=== PATIENT | male | born 1975 | race Caucasian/White ===

== ENCOUNTER 2017-03-30 12:18 | Observation (INO) | payer OTHER ==
[~2017-03-30] VITALS: Ht 167.6 cm; Wt 93.2 kg
[2017-03-30 12:20] VITALS: BP 207/105; PULSE 95; RESP 14; TEMP 98.2; O2SAT 98
[2017-03-30 13:14] LABS: AUTOMATED NEUTROPHIL # 6.2 TH/MM3 (1.8-7.7); BASOPHIL % 0.5 % (0.0-2.0); EOSINOPHIL # 0.3 TH/MM3 (0-0.4); EOSINOPHIL % 3.6 % (0.0-4.0); HEMATOCRIT 46.8 % (39.0-51.0); HEMOGLOBIN 16.2 GM/DL (13.0-17.0); LYMPH % 17.1 % (9.0-44.0); LYMPHOCYTE # 1.5 TH/MM3 (1.0-4.8); MEAN CELL VOLUME 92.4 FL (80.0-100.0); MEAN CORPUSCULAR HGB CONC 34.6 % (32.0-36.0); MONO % 8.7 % (0.0-8.0); MONOCYTE # 0.8 TH/MM3 (0-0.9); NEUT % 70.1 % (16.0-70.0); PLATELET COUNT 206 TH/MM3 (150-450); RED BLOOD COUNT 5.06 MIL/MM3 (4.50-5.90); RED CELL DISTRIBUTION WIDTH 13.5 % (11.6-17.2); WHITE BLOOD COUNT 8.8 TH/MM3 (4.0-11.0)
[2017-03-30 13:28] LABS: INTERNATIONAL NORMALIZED RATIO 1.1 RATIO
[2017-03-30 13:33] LABS: BICARBONATE 27.2 MEQ/L (21.0-32.0); BLOOD UREA NITROGEN 14 MG/DL (7-18); CALCIUM 8.3 MG/DL (8.5-10.1); CHLORIDE 106 MEQ/L (98-107); CREATININE 0.96 MG/DL (0.60-1.30); GLOMERULAR FILTRATION RATE 86 ML/MIN (>89); GLUCOSE,RANDOM 99 MG/DL (74-106); MAGNESIUM 1.9 MG/DL (1.5-2.5); PROTHROMBIN TIME - PATIENT 10.8 SEC (9.8-11.6); SODIUM (NA) 139 MEQ/L (136-145)
--- NOTE | 2017-03-30 13:33 | RADRPT ---
EXAM DATE/TIME: 03/30/2017 13:20 [place] COMPARISON: No previous studies available for comparison. INDICATIONS : Chest tightness, cough. MEDICAL HISTORY : None. SURGICAL HISTORY : None. ENCOUNTER: Initial ACUITY: 2 weeks PAIN SCORE: 2/10 LOCATION: Bilateral chest FINDINGS: PA and lateral views of the chest demonstrate the lungs to be symmetrically aerated without evidence of mass, infiltrate or effusion. The cardiomediastinal contours are unremarkable. Osseous structure s are intact. CONCLUSION: No acute cardiopulmonary process. Lungs are clear. Ash Thomas MD on March 30, 2017 at 13:30 Board Certified Radiologist. This report was verified electronically.
[2017-03-30 13:36] LABS: TROPONIN I LESS THAN 0.02 NG/ML (0.02-0.05)
[2017-03-30 13:59] VITALS: BP 214/96; PULSE 82; RESP 18; O2SAT 99
[2017-03-30] MEDS ORDERED: NITROGLYCERIN 2% OINT 1 GM PACKET TOP ONE (14:00)
[2017-03-30] MEDS ORDERED: hydrALAZINE HCL 20 MG/ML VIAL IV PUSH ONE (14:00)
[2017-03-30] MEDS ORDERED: SODIUM CHLORIDE 0.9% FLUSH 10 ML FLUSH IVF PRN (14:00)
--- NOTE | 2017-03-30 14:06 | PD ---
HPI Chief Complaint: Chest Pain Time Seen by Provider: 13:51 Travel History International Travel<30 days: No Contact w/Intl Traveler<30days: No Traveled to known affect area: No History of Present Illness HPI Patient comes to the emergency department complaining of chest pain began earlier today. Please states he felt short of breath over the past couple days then today he felt a tightness throughout his chest radiating into his back and tingling in his left upper extremity. Patient reports he is supposed be on blood pressure medicine but has been off of it for 2 months. Patient reports he last had a stress test 5 years ago and last saw a lead net software developer 5 years ago as well. Denies any headache, diaphoresis, nausea, vomiting, fevers, or abdominal pain. Denies anything making symptoms better or worse, but does feel better currently. Patient states he took 2 full-strength aspirin prior to coming to the emergency department. PFSH Past Medical History Cardiovascular Problems: Yes (HTN, cholesterol) High Cholesterol: Yes Hypertension: Yes Tetanus Vaccination: < 5 Years Influenza Vaccination: No Past Surgical History Surgical History: No Previous Surgery Social History Alcohol Use: Yes (DAILY) Tobacco Use: Yes Substance Use: No Allergies-Medications (Allergen,Severity, Reaction): Coded Allergies: No Known Allergies (Unverified , 03/30/17) Reported Meds & Prescriptions Reported Meds & Active Scripts Active No Active Prescriptions or Reported Medications Review of Systems Except as stated in HPI: all other systems reviewed are Neg Physical Exam Narrative GENERAL: Well-developed, well nourished, in no acute distress, and non-ill appearing. SKIN: Focused skin assessment warm and dry. HEAD: Atraumatic. Normocephalic. EYES: Pupils equal and round. EOMI. No scleral icterus. No injection or drainage. ENT: No nasal bleeding or discharge. Mucous membranes pink and moist. NECK: Trachea midline. No JVD. Supple. No nuclear rigidity. CARDIOVASCULAR: Regular rate and rhythm. No murmur appreciated. RESPIRATORY: No accessory muscle use. No respiratory distress. Clear to auscultation. Breath sounds equal bilaterally. MUSCULOSKELETAL: No obvious deformities. No clubbing. No cyanosis. No edema. Full range of motion. NEUROLOGICAL: Awake and alert. No obvious cranial nerve deficits. Motor grossly within normal limits. Normal speech. PSYCHIATRIC: Appropriate mood and affect; insight and judgment normal. Data Data Last Documented VS Vital Signs Date Time Temp Pulse Resp B/P (MAP) Pulse Ox O2 Delivery O2 Flow Rate FiO2 03/30/17 14:10 96 Room Air 03/30/17 14:10 77 19 184/103 (130) 214/96 (135) 03/30/17 12:20 98.2 Orders Orders Electrocardiogram (03/30/17 12:40) Basic Metabolic Panel (Bmp) (03/30/17 12:40) Ckmb (Isoenzyme) Profile (03/30/17 12:40) Complete Blood Count With Diff (03/30/17 12:40) Magnesium (Mg) (03/30/17 12:40) Prothrombin Time / Inr (Pt) (03/30/17 12:40) Act Partial Throm Time (Ptt) (03/30/17 12:40) Troponin I (03/30/17 12:40) Chest, Pa & Lat (03/30/17 12:40) CKMB (03/30/17 12:55) CKMB% (03/30/17 12:55) Ecg Monitoring (03/30/17 14:00) Bilateral Bp Monitoring (03/30/17 14:00) Iv Access Insert/Monitor (03/30/17 14:00) Oximetry (03/30/17 14:00) Oxygen Administration (03/30/17 14:00) Nitroglycerin 2% Oint (Nitroglycerin 2% (03/30/17 14:00) Sodium Chloride 0.9% Flush (Ns Flush) (03/30/17 14:00) Hydralazine Inj (Apresoline Inj) (03/30/17 14:00) Admit Order (Ed Use Only) (03/30/17 14:45) Labs Laboratory Tests Test 03/30/17 12:55 White Blood Count 8.8 TH/MM3 Red Blood Count 5.06 MIL/MM3 Hemoglobin 16.2 GM/DL Hematocrit 46.8 % Mean Corpuscular Volume 92.4 FL Mean Corpuscular Hemoglobin 32.0 PG Mean Corpuscular Hemoglobin Concent 34.6 % Red Cell Distribution Width 13.5 % Platelet Count 206 TH/MM3 Mean Platelet Volume 9.0 FL Neutrophils (%) (Auto) 70.1 % Lymphocytes (%) (Auto) 17.1 % Monocytes (%) (Auto) 8.7 % Eosinophils (%) (Auto) 3.6 % Basophils (%) (Auto) 0.5 % Neutrophils # (Auto) 6.2 TH/MM3 Lymphocytes # (Auto) 1.5 TH/MM3 Monocytes # (Auto) 0.8 TH/MM3 Eosinophils # (Auto) 0.3 TH/MM3 Basophils # (Auto) 0.0 TH/MM3 CBC Comment DIFF FINAL Differential Comment Prothrombin Time 10.8 SEC Prothromb Time International Ratio 1.1 RATIO Activated Partial Thromboplast Time 28.5 SEC Blood Urea Nitrogen 14 MG/DL Creatinine 0.96 MG/DL Random Glucose 99 MG/DL Calcium Level 8.3 MG/DL Magnesium Level 1.9 MG/DL Sodium Level 139 MEQ/L Potassium Level 4.0 MEQ/L Chloride Level 106 MEQ/L Carbon Dioxide Level 27.2 MEQ/L Anion Gap 6 MEQ/L Estimat Glomerular Filtration Rate 86 ML/MIN Total Creatine Kinase 118 U/L Creatine Kinase MB 0.7 NG/ML Troponin I LESS THAN 0.02 NG/ML MDM Medical Decision Making Medical Screen Exam Complete: Yes Emergency Medical Condition: Yes Interpretation(s) EKG reviewed by Dr. Pierre shows sinus rhythm ventricular rate of 68. No STEMI. Last Impressions Chest X-Ray 03/30/17 1240 Signed Impressions: Service Date/Time: March 13:20 - CONCLUSION: No acute cardiopulmonary process. Lungs are clear. Ash Thomas MD Differential Diagnosis Acute coronary syndrome, atypical chest pain, uncontrolled hypertension, hypertension urgency, medical noncompliance, metabolic disturbance, pneumonia, pneumothorax Narrative Course Patient was seen and examined. IV was established and patient was placed on cardiac monitoring. Patient was given Nitropaste and IV hydralazine, which improved patient's blood pressure. Labs had been ordered in triage were reviewed along with chest x-ray and EKG. Discussed all findings and plan of care with patient, who is agreeable for admission. All questions were answered. Discussed patient with Dr. Pierre, who is in agreement with plan of care and disposition. Patient remained stable throughout ED course. Diagnosis Primary Impression: Chest pain Qualified Codes: R07.9 - Chest pain, unspecified Admitting Information Admitting Physician Requests: Observation Scripts No Active Prescriptions or Reported Meds Condition: Stable Gianni Bansal Mar 30, 2017 14:06
[2017-03-30 14:10] VITALS: BP_SYST 184; BP_SYST 214; BP_DIAS 103; BP_DIAS 96; PULSE 73; PULSE 77; RESP 19; O2SAT 96; O2SAT 98
[2017-03-30 14:48] VITALS: BP 151/82; PULSE 74; RESP 16; O2SAT 98
[2017-03-30] MEDS ORDERED: ACETAMINOPHEN 500 MG CPLT PO PRN (15:15)
[2017-03-30] MEDS ORDERED: NITROGLYCERIN 0.4 MG SL 25 TABS/BTL SL PRN (15:15)
[2017-03-30] MEDS ORDERED: ONDANSETRON HCL 4 MG/2 ML VIAL IV PUSH PRN (15:15)
[2017-03-30 15:50] VITALS: BP 161/92
[2017-03-30] MEDS ORDERED: amLODIPine BESYLATE 5 MG TAB PO ONE (16:00)
[2017-03-30] MEDS ORDERED: cloNIDine HCL 0.1 MG TAB PO PRN (16:00)
--- NOTE | 2017-03-30 16:03 | HHI.HP ---
HPI Primary Care Physician No Primary Care Physician Chief Complaint Chest tightness History of Present Illness 41-year-old male with history of hypertension and hyperlipidemia presents to emergency room for further evaluation of chest tightness. Endorses been out of his cholesterol and blood pressure medication for a couple months. Onset 9 AM. Location substernal. Characterized as tightness. Severity moderate. Radiation left shoulder blade describes as "soreness" lasting few minutes with accompanying left fingertips numbness/tingling. No associated symptoms of nausea , vomiting, dyspnea, or diaphoreses. No known precipitating or relieving factors. Endorses last 2-3 weeks difficult to take a deep breath with intermittent nonproductive cough. No fever or chills. Current chest pain free. Endorses similar chest discomfort in the past, having cardiac work up three times, all reported to be normal. Review of Systems General: No fatigue,weakness, fever, chills, recent illness, or change in appetite HEENT: No CUTLER, no vision changes, no nasal congestion, no dysphasia, intermittent postnasal drip 2 weeks CV: As stated above. No current chest tightness. No palpitations, intermittent leg pain, or dizziness RESP: No SOB, cough, wheeze, or upper respiratory infection GI: No nausea, vomiting, bowel changes, diarrhea, constipation, pain, distention , melena, or blood in the stool. No change in appetite, no unintentional weight gain or weight loss. : No dysuria, urgency, frequency EXT: No lower leg edema, no paraesthesias MS: No discomfort,injury, recent trauma, or change in ROM NEURO: No difficulty with balance, LOC, or motor/sensory deficits PSYCH: No anxiety, depression, suicidal ideation. Past panic attacks, however does not feel to be under much stress lately. SKIN: No rashes, no concerning lesions Past Family Social History Allergies: Coded Allergies: No Known Allergies (Unverified , 03/30/17) Past Medical History Hypertension, hyperlipidemia Past Surgical History None Reported Medications Reported Meds & Active Scripts Active No Active Prescriptions or Reported Medications Was taking lipitor 80mg daily and lisinopril 10mg daily, has ran out of medications x2 months Active Ordered Medications Current Medications Medications (Trade) Dose Ordered Sig/Jaimie Route Start Time Stop Time Status Last Admin (NS Flush) 2 ml UNSCH PRN IVF 03/30/17 14:00 (NS Flush) 2 ml BID IV FLUSH 03/30/17 21:00 (Tylenol) 500 mg Q4H PRN PO 03/30/17 15:15 (Zofran Inj) 4 mg Q6H PRN IV PUSH 03/30/17 15:15 (Nitrostat Sl) 0.4 mg Q5M PRN SL 03/30/17 15:15 (Aspirin) 325 mg DAILY PO 03/31/17 09:00 UNV Family History Noncontributory for early onset cardiovascular disease. Social History Known hypertension and hyperlipidemia (out of medications x2 months). No known diabetes or CAD. Current 1 pack/day smoker x 20 years. Endorses 6-7 beers nightly. Denies any illegal drug use. Endorses sedentary lifestyle. Past cardiac testing No recent stress testing, last exercise testing approx. 5-6 years. Physical Exam Vital Signs Vital Signs Date Time Temp Pulse Resp B/P (MAP) Pulse Ox O2 Delivery O2 Flow Rate FiO2 03/30/17 15:50 76 16 161/92 (115) 99 03/30/17 14:48 74 16 151/82 (105) 98 Room Air 03/30/17 14:10 96 Room Air 03/30/17 14:10 77 19 184/103 (130) 96 Room Air 214/96 (135) 03/30/17 14:10 73 19 184/103 (130) 98 Room Air 03/30/17 13:59 82 18 214/96 (135) 99 Room Air 03/30/17 13:53 75 18 98 Room Air 03/30/17 12:20 98.2 95 14 207/105 (139) 98 Physical Exam GENERAL: Alert WN, WD, NAD, pleasant, male HEAD: NC, AT CV: RRR, without murmur, rub, gallop, no JVD, S1-S2 no S3-S4. Chest wall nontender with palpation. RESP: Clear lungs throughout bilateral, no crackles, wheeze, rhonchi, symmetrical chest rise, nonlabored, able to speak in full sentences ABD: Soft, NT, ND, no masses, positive bowel tones EXT: Pulses +24, no dependent edema MS: Normal tone 4 extremities, no obvious deformities, full range of motion NEURO: CN II through CN XII grossly intact, motor strength 5/5, gait WNL PSYCH: A+O 3, pleasant affect, appropriate speech, mood, insight and judgment SKIN: Normal turgor, normal texture, no lesions, no rashes, brisk cap refill, even hair distribution Laboratory Laboratory Tests Test 03/30/17 12:55 White Blood Count 8.8 Red Blood Count 5.06 Hemoglobin 16.2 Hematocrit 46.8 Mean Corpuscular Volume 92.4 Mean Corpuscular Hemoglobin 32.0 Mean Corpuscular Hemoglobin Concent 34.6 Red Cell Distribution Width 13.5 Platelet Count 206 Mean Platelet Volume 9.0 Neutrophils (%) (Auto) 70.1 Lymphocytes (%) (Auto) 17.1 Monocytes (%) (Auto) 8.7 Eosinophils (%) (Auto) 3.6 Basophils (%) (Auto) 0.5 Neutrophils # (Auto) 6.2 Lymphocytes # (Auto) 1.5 Monocytes # (Auto) 0.8 Eosinophils # (Auto) 0.3 Basophils # (Auto) 0.0 CBC Comment DIFF FINAL Differential Comment Prothrombin Time 10.8 Prothromb Time International Ratio 1.1 Activated Partial Thromboplast Time 28.5 Blood Urea Nitrogen 14 Creatinine 0.96 Random Glucose 99 Calcium Level 8.3 Magnesium Level 1.9 Sodium Level 139 Potassium Level 4.0 Chloride Level 106 Carbon Dioxide Level 27.2 Anion Gap 6 Estimat Glomerular Filtration Rate 86 Total Creatine Kinase 118 Creatine Kinase MB 0.7 Troponin I LESS THAN 0.02 Result Diagram: 03/30/17 1255 03/30/17 1255 Imaging Last 48 hours Impressions Chest X-Ray 03/30/17 1240 Signed Impressions: Service Date/Time: March 13:20 - CONCLUSION: No acute cardiopulmonary process. Lungs are clear. sAh Thomas MD Course EKG Normal sinus rhythm, no ST or T-segment changes Caprini VTE Risk Assessment Caprini VTE Risk Assessment: No/Low Risk (score <= 1) Caprini Risk Assessment Model Point Value = 1 Point Value = 2 Point Value = 3 Point Value = 5 Age 41-60 Minor surgery BMI > 25 kg/m2 Swollen legs Varicose veins or History of unexplained or recurrent spontaneous Oral contraceptives or hormone replacement Sepsis (< 1 month) Serious lung disease, including pneumonia (< 1 month) Abnormal pulmonary function Acute myocardial infarction Congestive heart failure (< 1 month) History of inflammatory bowel disease Medical patient at bed rest Age 61-74 Arthroscopic surgery Major open surgery (> 45 min) Laparoscopic surgery (> 45 min) Malignancy Confined to bed (> 72 hours) Immobilizing plaster cast Central venous access Age >= 75 History of VTE Family history of VTE Factor V Leiden Prothrombin [id number] Lupus anticoagulant Anticardiolipin antibodies Elevated serum homocysteine Heparin-induced thrombocytopenia Other congenital or acquired thrombophilia Stroke (< 1 month) Elective arthroplasty Hip, pelvis, or leg fracture Acute spinal cord injury (< 1 month) Prophylaxis Regimen Total Risk Factor Score Risk Level Prophylaxis Regimen 0-1 Low Early ambulation 2 Moderate Order ONE of the following: *Sequential Compression Device (SCD) *Heparin 5000 units SQ BID 3-4 Higher Order ONE of the following medications: *Heparin 5000 units SQ TID *Enoxaparin/Lovenox 40 mg SQ daily (WT < 150 kg, CrCl > 30 mL/min) *Enoxaparin/Lovenox 30 mg SQ daily (WT < 150 kg, CrCl > 10-29 mL/min) *Enoxaparin/Lovenox 30 mg SQ BID (WT < 150 kg, CrCl > 30 mL/min) AND/OR *Sequential Compression Device (SCD) 5 or more Highest Order ONE of the following medications: *Heparin 5000 units SQ TID (Preferred with Epidurals) *Enoxaparin/Lovenox 40 mg SQ daily (WT < 150 kg, CrCl > 30 mL/min) *Enoxaparin/Lovenox 30 mg SQ daily (WT < 150 kg, CrCl > 10-29 mL/min) *Enoxaparin/Lovenox 30 mg SQ BID (WT < 150 kg, CrCl > 30 mL/min) AND *Sequential Compression Device (SCD) Assessment and Plan Code Status #1 Atypical chest pain-admitted chest pain center. Rule out with 2 sets of EKG and cardiac enzymes. Seen and evaluated by Dr. Nicanor Chan. Proceed with exercise stress test this evening. If unremarkable discharge later this evening. Patient agreeable to plan of care. Strongly encouraged stress importance of establishing with a primary care provider. Verbalized understanding. #2 Hypertension-amlodipine 5 mg 1 dose now, clonidine 0.1 mg every 6 hours when necessary for systolic greater than 180 or diastolic greater than 100. Upon discharge will provide prescription for lisinopril 10 mg with 1 refill. Strongly encouraged and stressed the importance of tight blood pressure control and not running out of blood pressure medication. Encouraged increasing daily activity, weight loss, and sodium restriction of no more than 1-2 grams daily. #3 History of hyperlipidemia-will rewrite atorvastatin 80 mg daily at discharge. #4 Tobacco use-strongly encouraged and stressed the importance of tobacco cessation. Instructed to quit smoking. Discussed daily recommended intake of alcohol of no more than 2 drinks daily. Discussed importance of decreasing his alcohol intake. Andreia Victor Mar 30, 2017 16:03
[2017-03-30 16:18] VITALS: BP 164/94; PULSE 71; RESP 16; TEMP 97.7; O2SAT 99
[2017-03-30 16:38] LABS: TROPONIN I LESS THAN 0.02 NG/ML (0.02-0.05)
[2017-03-30] MEDS ORDERED: LIPI80TA PO (17:27)
[2017-03-30] MEDS ORDERED: LISI10TA3 PO (17:27)
--- NOTE | 2017-03-30 17:59 | HHI.DCPOC ---
Discharge Care Plan Diagnosis: (1) Hypertension (2) Atypical chest pain (3) History of hyperlipidemia Goals to Promote Your Health * To prevent worsening of your condition and complications * To maintain your health at the optimal level Directions to Meet Your Goals Take your medications as prescribed Follow your dietary instruction Follow activity as directed Keep your appointments as scheduled Take your immunizations and boosters as scheduled If your symptoms worsen call your PCP, if no PCP go to Urgent Care Center or Emergency Room Smoking is Dangerous to Your Health. Avoid second hand smoke Call the 24-hour hour crisis hotline for domestic abuse at Andreia Victor Mar 30, 2017 17:59
[2017-03-30] MEDS ORDERED: SODIUM CHLORIDE 0.9% FLUSH 10 ML FLUSH IV FLUSH SCH (21:00)
[2017-03-31] MEDS ORDERED: ASPIRIN 325 MG TAB PO SCH (09:00)
--- NOTE | 2017-03-31 16:20 | EKG ---
Date Performed: 03/30/2017 Time Performed: 16:26:03 PTAGE: 41 years EKG: Sinus rhythm POSSIBLE LEFT ATRIAL ENLARGEMENT BORDERLINE ECG PREVIOUS TRACING : 03/30/2017 13.04 Since previous tracing, no significant change noted DOCTOR: Nicanor Chan Interpretating Date/Time 03/31/2017 16:18:42
--- NOTE | 2017-03-31 16:22 | EKG ---
Date Performed: 03/30/2017 Time Performed: 13:04:04 PTAGE: 41 years EKG: Sinus rhythm NORMAL ECG NO PREVIOUS TRACING DOCTOR: Nicanor Chan Interpretating Date/Time 03/31/2017 16:19:36
--- NOTE | 2017-03-31 16:30 | TR ---
Date Performed: 03/30/2017 Time Performed: 17:21:00 DOCTOR: Nicanor Chan DRUG LIST: CLINICAL HISTORY: REASON FOR TEST: Chest pain REASON FOR ENDING: OBSERVATION: CONCLUSION: Yahir protocol completed. Stopped sec to exceeding target heart rate and leg fatigue . Maximum IY=845 Target HR Achieved=85.0% Maximum OJ=597/96 Total Exercise Time=8:06. No reprod chest pain. No ectopy. No st t segment changes. Hypertensive bp response. Good exercise tolerance. Recover y quick and unremarkable. COMMENTS: Patient exercised using the Yahir protocol. No electrocardiographic changes were seen to suggest ischemia. Hemodynamic response to exercise was normal. No significant arrhythmia was prese nt.
== END 2017-03-30 18:34 | disposition home or self-care (01) ==
LOC: NEPC 12:18 → NEDA 14:47 → NEPGCP 16:10
PROVIDERS: ADMIT Internal Medicine Cardiovascular Disease; ATTEND Internal Medicine Cardiovascular Disease
DX: I10 Essential (primary) hypertension (principal); R07.89 Other chest pain; E78.5 Hyperlipidemia, unspecified; R94.31 Abnormal electrocardiogram [ECG] [EKG]; F17.200 Nicotine dependence, unspecified, uncomplicated; Z79.899 Other long term (current) drug therapy
CPT/HCPCS: 71046; 80048; 82550; 82552; 83735; 84484; 85025; 85610; 85730; 93005; 93017; 96374; 99285; G0378; J0360